=== PATIENT | male | born 1960 | race African-American/Black ===

== ENCOUNTER 2020-07-27 16:51 | Emergency (ER) | payer SELFPAY ==
[~2020-07-27] VITALS: Ht 177.8 cm; Wt 77.0 kg
[2020-07-27 16:58] VITALS: BP 167/106
== END 2020-07-27 18:14 | disposition left against medical advice (07) ==
LOC: ER 16:51
DX: Z53.21 Procedure and treatment not carried out due to patient leaving prior to being seen by health care provider (principal); R56.9 Unspecified convulsions; D57.1 Sickle-cell disease without crisis; Z88.0 Allergy status to penicillin